=== PATIENT | female | born 1985 | race Caucasian/White ===

== ENCOUNTER → 2018-02-28 | Outpatient (CLI) | payer OTHER ==
--- NOTE | 2018-02-28 09:12 | DIAGNOSTIC IMAGING REPORT ---
NUCLEAR MEDICINE HEPATOBILIARY SCAN CLINICAL HISTORY: Right upper quadrant abdominal pain COMPARISON STUDY: No previous studies for comparison. FINDINGS: The patient was injected with 5.2 mCi of technetium 99m Choletec. Anterior imaging was performed. The gallbladder was first visualized on the 15 minute image. There is normal passage of activity into small bowel. Hepatic excretion was unremarkable in appearance. IMPRESSION: Normal study. No evidence of cystic duct obstruction Electronically signed by: Vimal Talley M.D. 02/28/2018 9:11 AM Dictated Date/Time: 02/28/2018 9:10 AM
== END | disposition home or self-care (01) ==
LOC: C.NUCL 07:44
PROVIDERS: ATTEND Physician Assistant Medical
DX: R10.11 Right upper quadrant pain (principal)

== ENCOUNTER → 2018-03-07 | Outpatient (CLI) | payer OTHER ==
--- NOTE | 2018-03-07 09:46 | DIAGNOSTIC IMAGING REPORT ---
L HAND MIN 3 VIEWS ROUTINE CLINICAL HISTORY: Sicca syndrome. Bilateral hand pain. COMPARISON: None FINDINGS: Alignment of the left hand is anatomic. No fracture or osseous lesion is present. Joint spaces are preserved. There are no erosions. IMPRESSION: Unremarkable left hand radiographs. No evidence of an erosive/inflammatory arthropathy. Electronically signed by: Arnav Macias M.D. 03/07/2018 9:45 AM Dictated Date/Time: 03/07/2018 9:44 AM
--- NOTE | 2018-03-07 09:48 | DIAGNOSTIC IMAGING REPORT ---
R HAND MIN 3 VIEWS ROUTINE CLINICAL HISTORY: BENIGN JOINT HYPERMOBILITY COMPARISON: None FINDINGS: Alignment of the right hand is anatomic. There is no fracture or osseous lesion. Joint spaces are preserved. No erosions are identified. Carpal bones are intact. IMPRESSION: Unremarkable right hand radiographs. Electronically signed by: Arnav Macias M.D. 03/07/2018 9:47 AM Dictated Date/Time: 03/07/2018 9:45 AM
--- NOTE | 2018-03-07 09:49 | DIAGNOSTIC IMAGING REPORT ---
L-SPINE MIN 4 VIEWS ROUTINE CLINICAL HISTORY: Low back pain. Benign joint hypermobility. COMPARISON: None FINDINGS: Alignment of the lumbar spine is anatomic. Vertebral body heights are maintained. There is no fracture or suspicious lesion. Disc spaces are preserved. Facet joints are intact. There is mild lower lumbar spine facet arthrosis. The bowel gas pattern is normal. IMPRESSION: 1. No lumbar spine fracture. 2. Preserved disc spaces. 3. Mild multilevel facet arthrosis. Electronically signed by: Arnav Macias M.D. 03/07/2018 9:48 AM Dictated Date/Time: 03/07/2018 9:47 AM
--- NOTE | 2018-03-07 09:50 | DIAGNOSTIC IMAGING REPORT ---
PELVIS 1 OR 2 VIEW ROUTINE HISTORY: 32 years-old Female K21.9 Gastroesophageal reflux [id number] Benign joint hypermob acute low back pain COMPARISON: None available TECHNIQUE: Single AP view of the pelvis FINDINGS: No acute fracture, dislocation or significant degenerative changes. Soft tissues are unremarkable without opaque foreign body. IMPRESSION: No acute fracture. The above report was generated using voice recognition software. It may contain grammatical, syntax or spelling errors. Electronically signed by: Win Ferrara M.D. 03/07/2018 9:48 AM Dictated Date/Time: 03/07/2018 9:46 AM
[2018-03-07 10:07] LABS: BASO % 0.6 %; BASO ABS # 0.03 K/uL (0-0.2); EOS % 1.7 %; EOS ABS # 0.08 K/uL (0-0.5); HEMATOCRIT 40.1 % (37-47); HEMOGLOBIN 12.7 g/dL (12.0-16.0); IG# 0.01 K/uL (0.00-0.02); LYMPH % 29.3 %; MEAN CELL VOLUME 86.4 fL (80-100); MEAN CORPUSCULAR HEMOGLOBIN 27.4 pg (25-34); MEAN CORPUSCULAR HGB CONC 31.7 g/dl (32-36); MEAN PLATELET VOLUME 9.3 fL (7.4-10.4); MONO % 12.3 %; MONO ABS # 0.59 K/uL (0.11-0.59); NEUT % 55.9 %; NEUT ABS # 2.67 K/uL (1.4-6.5); PLATELET COUNT 258 K/uL (130-400); RED CELL DISTRIBUTION WIDTH SD 44.2 fL (36.4-46.3); WHITE BLOOD COUNT 4.78 K/uL (4.8-10.8)
[2018-03-07 10:29] LABS: ALBUMIN 3.8 gm/dl (3.4-5.0); AST/SGOT 17 U/L (15-37); BLOOD UREA NITROGEN 15 mg/dl (7-18); CALCIUM 8.8 mg/dl (8.5-10.1); CARBON DIOXIDE 27 mmol/L (21-32); CREATININE 0.82 mg/dl (0.60-1.20); GLUCOSE 78 mg/dl (70-99); SODIUM 139 mmol/L (136-145)
[2018-03-07 10:32] LABS: ALKALINE PHOSPHATASE 61 U/L (45-117); ALT/SGPT 38 U/L (12-78); TOTAL PROTEIN 7.9 gm/dl (6.4-8.2); TRANSFERRIN 255 mg/dl (200-360)
== END | disposition home or self-care (01) ==
LOC: C.RAD1850 09:05
PROVIDERS: ATTEND Internal Medicine Rheumatology
DX: K21.9 Gastro-esophageal reflux disease without esophagitis (principal); M35.00 Sjogren syndrome, unspecified; M35.7 Hypermobility syndrome; M54.5 Low back pain; E55.9 Vitamin D deficiency, unspecified; G40.109 Localization-related (focal) (partial) symptomatic epilepsy and epileptic syndromes with simple partial seizures, not intractable, without status epilepticus

== ENCOUNTER → 2018-03-28 | Day surgery (SDC) | payer OTHER ==
[2018-03-18 15:09] VITALS: Ht 165.1 cm; Wt 104.5 kg
[~2018-03-28] VITALS: Ht 165.1 cm; Wt 104.5 kg
[~2018-03-28] MED LIST: BUDE1SUS8 INTNAS; BUTA1CAP6 PO; CYCL10TA6 PO; DICL-201 PO; FLAX10004 PO; LAMO150T PO; LIDOCAINE HCL 2% 2 ML VIAL (20MG/ML) ONE; MISCCAP52 PO; MISCCAP80 PO; MULT-513 PO; POLY335019 PO; PRLSR20 PO; PROPOFOL IV EMULSION 10 MG/ML 20 ML VIAL ONE; PRVHFAIN INH; SODIUM CHLORIDE 0.9% 500ML 500 ML IV ONE
--- NOTE | 2018-03-28 14:05 | Endo History and Physical ---
History & Physical Date of Service: March 28, 2018. Chief Complaint: GERD, RUQ PAIN Referring Physician: KELLIE JUNIOR PA-C History of Present Illness 32 yo CF who presents for EGD secondary to GERD and RUQ abdominal pain. Past Surgical History Hx Cardiac Surgery: No Hx Internal Defibrillator: No Hx Pacemaker: No Hx Abdominal Surgery: No Hx of Implantable Prosthesis: No Hx Post-Op Nausea and Vomiting: No Hx Cancer Surgery: No Hx Thoracic Surgery: No Hx Orthopedic: No Hx Urinary Tract Surgery: No Family History None Social History Smoking Status: Never Smoker Hx Substance Use: No Hx Alcohol Use: Yes (OCC SOCIAL 2-3 DRINKS A WEEK) Allergies Coded Allergies: Clindamycin (Verified Allergy, Unknown, RASH, 03/28/18) Penicillins (Verified Allergy, Unknown, RASH, 03/28/18) Current Medications Reported Home Medications Medications Dose Route/Sig Max Daily Dose Days Date Category Dose Instructions Miralax (Polyethylene Glycol 3350) 1 Pow Pow 17 Gm PO PRN 03/18/18 Reported Rhinocort Allergy (Budesonide (Nasal)) 32 Mcg/Act Charmaine 1 Sprays INTNAS QAM 03/18/18 Reported Ventolin Hfa (Albuterol) 60 Puffs/5400 Mcg Aers 2 Puffs INH PRN 03/18/18 Reported Flaxseed Oil [place]-3 (Flaxseed (Linseed)) 1,000 Mg Cap 2,500 Mg PO QAM 03/18/18 Reported Turmeric Curcumin ([employer] Natural Products) 1 Cap Cap 800 Mg PO QPM 03/18/18 Reported Probiotic (Probiotic Product) 1 Cap Cap 1 Tab PO QPM 03/18/18 Reported Mvi With Minerals (Multivitamins/Minerals) Tab 1 Tab PO QAM 03/18/18 Reported Butalbital/Acetaminophen/ (Szkftuyofu-Neqazrauvshww-Rnrvd) 1 Cap Cap 1 Tab PO Q4H PRN 03/18/18 Reported 50-325-40 MG Flexeril (Cyclobenzaprine Hcl) 10 Mg Tab 5-10 Mg PO TID PRN 03/18/18 Reported Lamictal (Lamotrigine) 150 Mg Tab 150 Mg PO BID 03/18/18 Reported Prilosec (Omeprazole) 20 Mg Capcr 20 Mg PO BID 03/18/18 Reported Voltaren (Diclofenac Sodium) 75 Mg Tabcr 75 Mg PO BID 03/18/18 Reported WITH FOOD Vital Signs Weight (Kilograms): 104.55 Height (Feet): 5 Height (Inches): 5 Date Time Temp Pulse Resp B/P (MAP) Pulse Ox O2 Delivery O2 Flow Rate FiO2 03/28/18 13:20 36.8 98 20 118/76 (90) 97 Room Air Physical Exam General Appearance: WD/WN, no apparent distress Respiratory/Chest: Auscultation: breath sounds normal Cardiovascular: Heart Auscultation: RRR Abdomen: Bowel Sounds: normal Inspection & Palpation: soft, non-distended, no tenderness, guarding & rebound Assessment and Plan Assessment: 32 yo CF who presents for EGD secondary to GERD and RUQ abdominal pain. Plan: Proceed with colonoscopy.
--- NOTE | 2018-03-28 14:59 | Discharge Instructions ---
Endoscopy Patient Instructions Date / Procedure(s) Performed March 28, 2018. EGD Allergy Information Coded Allergies: Clindamycin (Verified Allergy, Unknown, RASH, 03/28/18) Penicillins (Verified Allergy, Unknown, RASH, 03/28/18) Discharge Date / Findings March 28, 2018. Hiatal hernia Gastric antrum biopsies Medication Instructions OK to resume all medications today as prescribed Reported Home Medications Medications Dose Route/Sig Max Daily Dose Days Date Category Dose Instructions Miralax (Polyethylene Glycol 3350) 1 Pow Pow 17 Gm PO PRN 03/18/18 Reported Rhinocort Allergy (Budesonide (Nasal)) 32 Mcg/Act Charmaine 1 Sprays INTNAS QAM 03/18/18 Reported Ventolin Hfa (Albuterol) 60 Puffs/5400 Mcg Aers 2 Puffs INH PRN 03/18/18 Reported Flaxseed Oil [place]-3 (Flaxseed (Linseed)) 1,000 Mg Cap 2,500 Mg PO QAM 03/18/18 Reported Turmeric Curcumin ([employer] Natural Products) 1 Cap Cap 800 Mg PO QPM 03/18/18 Reported Probiotic (Probiotic Product) 1 Cap Cap 1 Tab PO QPM 03/18/18 Reported Mvi With Minerals (Multivitamins/Minerals) Tab 1 Tab PO QAM 03/18/18 Reported Butalbital/Acetaminophen/ (Snmbfmlsvn-Vakbuwaywvksr-Hqclo) 1 Cap Cap 1 Tab PO Q4H PRN 03/18/18 Reported 50-325-40 MG Flexeril (Cyclobenzaprine Hcl) 10 Mg Tab 5-10 Mg PO TID PRN 03/18/18 Reported Lamictal (Lamotrigine) 150 Mg Tab 150 Mg PO BID 03/18/18 Reported Prilosec (Omeprazole) 20 Mg Capcr 20 Mg PO BID 03/18/18 Reported Voltaren (Diclofenac Sodium) 75 Mg Tabcr 75 Mg PO BID 03/18/18 Reported WITH FOOD Provider Instructions Activity Restrictions - No exercising or heavy lifting for 24 hours. - Do not drink alcohol the day of the procedure. - Do not drive a car or operate machinery until the day after the procedure. - Do not make any important decisions or sign important papers in 24 hours after the procedure. Following Day: - Return to full activity which may include returning to work/school. Diet Start your diet with liquids and light foods (jello, soup, juice, toast). Then eat your usual diet if not nauseated. Treatment For Common After Affects For mild abdominal pain, bloating, or excessive gas: - Rest - Eat lightly - Lie on right side Follow-Up Information Follow-up with KELLIE JUNIOR PA-C as scheduled Anesthesia Information What You Should Know You have had a procedure that required some medicine to reduce anxiety and discomfort. This treatment is called moderate sedation. After receiving the treatment, you may be sleepy, but you will be able to breathe on your own. The effects of the treatment may last for several hours. Follow these instructions along with Activity/Diet recommendations noted above: * Do NOT do anything where dizziness or clumsiness would be dangerous. * Rest quietly at home today, then you can be up and about tomorrow. * Have a responsible person stay with you the rest of today. * You may have had an I.V. today. If so, you may take the dressing off later today. Recommendations Call your doctor if: * Trouble breathing * Continuous vomiting for more than 24 hours * Temperature above 101 degrees * Severe abdominal pain or bloating * Pain not relieved by pain medicine ordered * There is increased drainage or redness from any incision * A large amount of rectal bleeding greater than 2-3 tablespoons. (If you had a polyp/s removed or have hemorrhoids, a small amount of blood - from the rectum is to be expected.) * You have any unanswered questions or concerns. IN THE EVENT OF A SERIOUS EMERGENCY, GO TO THE NEAREST EMERGENCY ROOM Your discharge instructions were prepared by provider Nitin Mcadams. Patient Instructions Signature Page Umm Mercado Patient (or Guardian) Signature/Date: I have read and understand the instructions given to me by my caregivers. Caregiver/RN/Doctor Signature/Date: The above-named patient and/or guardian has received patient instructions on this date. + Original Patient Signature Page (only) stays with chart. Please make copy for patient.
--- NOTE | 2018-03-28 15:05 | GI REPORT ---
Patient Name: Umm Mercado Procedure Date: 03/28/2018 2:07 PM Date of : 1985 Admit Type: Outpatient Age: 32 Gender: Female Attending MD: Nitin Mcadams DO Procedure: Upper GI endoscopy Providers: Nitin Mcadams DO Referring MD: Eladia Rosenbaum Indications: Abdominal pain in the right upper quadrant, Gastro-esophageal reflux disease Medicines: Monitored Anesthesia Care Complications: No immediate complications. Estimated Blood Loss: Estimated blood loss: none. Procedure: Pre-Anesthesia Assessment: - Prior to the procedure, a History and Physical was performed, and patient medications and allergies were reviewed. The patient's tolerance of previous anesthesia was also reviewed. The risks and benefits of the procedure and the sedation options and risks were discussed with the patient. All questions were answered, and informed consent was obtained. Prior Anticoagulants: The patient has taken no previous anticoagulant or antiplatelet agents. ASA Grade Assessment: II - A patient with mild systemic disease. After reviewing the risks and benefits, the patient was deemed in satisfactory condition to undergo the procedure. After obtaining informed consent, the endoscope was passed under direct vision. Throughout the procedure, the patient's blood pressure, pulse, and oxygen saturations were monitored continuously. The Scope was introduced through the mouth, and advanced to the second part of duodenum. The upper GI endoscopy was accomplished without difficulty. The patient tolerated the procedure well. Findings: The esophagus was normal. A medium-sized hiatal hernia was present. Biopsies were taken with a cold forceps in the gastric antrum for Helicobacter pylori testing. The examined duodenum was normal. Impression: - Normal esophagus. - Medium-sized hiatal hernia. - Normal examined duodenum. - Biopsies were taken with a cold forceps for Helicobacter pylori testing. Recommendation: - Resume previous diet. - Continue present medications. - Await pathology results. - Return to primary care physician as previously scheduled. Nitin Mcadams DO 03/28/2018 3:04:48 PM This report has been signed electronically. Note Initiated On: 03/28/2018 2:07 PM Number of Addenda: 0 I attest to the content of the Intraoperative Record and orders documented therein, exceptions below {[id number]}
[2018-03-28 15:25] VITALS: BP 114/75; PULSE 78; O2SAT 100
--- NOTE | 2018-03-28 15:29 | Anesthesiology Progress Note ---
Anesthesia Post Op Note Date & Time March 28, 2018 at 15:29 Vital Signs Pain Intensity: 0 Vital Signs Past 12 Hours Date Time Temp Pulse Resp B/P (MAP) Pulse Ox O2 Delivery O2 Flow Rate FiO2 03/28/18 15:25 78 16 114/75 (88) 100 Room Air 03/28/18 15:10 85 16 122/84 (97) 100 Room Air 03/28/18 14:55 87 16 96/51 (66) 96 Room Air 03/28/18 13:20 36.8 98 20 118/76 (90) 97 Room Air Notes Mental Status: alert / awake / arousable, participated in evaluation Pt Amnestic to Procedure: Yes Nausea / Vomiting: adequately controlled Pain: adequately controlled Airway Patency, RR, SpO2: stable & adequate BP & HR: stable & adequate Hydration State: stable & adequate Anesthetic Complications: no major complications apparent
== END | disposition home or self-care (01) ==
LOC: C.GI 12:55
PROVIDERS: ATTEND Internal Medicine
DX: R10.11 Right upper quadrant pain (principal); K44.9 Diaphragmatic hernia without obstruction or gangrene; K21.9 Gastro-esophageal reflux disease without esophagitis; M19.90 Unspecified osteoarthritis, unspecified site; R56.9 Unspecified convulsions; Z88.0 Allergy status to penicillin; Z88.1 Allergy status to other antibiotic agents; Z79.899 Other long term (current) drug therapy; Z98.890 Other specified postprocedural states

== ENCOUNTER → 2018-05-23 | Outpatient (CLI) | payer OTHER ==
[~2018-05-23] MED LIST changes: +LAMO100T16 PO; -LAMO150T PO; -LIDOCAINE HCL 2% 2 ML VIAL (20MG/ML) ONE; -MISCCAP52 PO; +OMEG10007 PO; +OXYC-57 PO; -PROPOFOL IV EMULSION 10 MG/ML 20 ML VIAL ONE; +SINCALIDE INJ 2 MCG in SODIUM CHLORIDE 0.9% 100ML 100 ML IV SCH; -SODIUM CHLORIDE 0.9% 500ML 500 ML IV ONE; +TURM1CAP4 PO
--- NOTE | 2018-05-23 15:02 | DIAGNOSTIC IMAGING REPORT ---
NUCLEAR MEDICINE HEPATOBILIARY SCAN WITH EJECTION FRACTION HISTORY: Right upper quadrant abdominal pain. COMPARISON: Abdominal series 04/25/2018. Hepatobiliary scan 02/28/2018. TECHNIQUE: Immediately following the intravenous administration of 5.5 mCi Tc-99m Choletec, dynamic anterior abdominal imaging pre/post 2 mcg of Kinevac was performed. FINDINGS: Uniform hepatic tracer accumulation is shown. Prompt intrahepatic biliary excretion is seen. The gallbladder, common bile duct, and small bowel are all visualized by 25 minutes. This appearance represents the normal sequence of biliary excretion. The gall bladder ejection fraction following administration of Kinevac was 97% (normal >35%). IMPRESSION: 1. No evidence for cystic duct obstruction. 2. Gallbladder ejection fraction calculated to be 97 %. Electronically signed by: Topher Garibay M.D. 05/23/2018 3:01 PM Dictated Date/Time: 05/23/2018 3:00 PM
== END | disposition home or self-care (01) ==
LOC: C.NUCL 04-25 12:28
PROVIDERS: ATTEND Physician Assistant
DX: R10.11 Right upper quadrant pain (principal)